=== PATIENT | male | born 1970 | race Caucasian/White ===

== ENCOUNTER 2018-01-06 16:28 | Emergency (ER) | payer OTHER ==
[~2018-01-06] VITALS: Ht 182.9 cm; Wt 94.5 kg
[2018-01-06 16:30] VITALS: BP 145/78
== END 2018-01-06 18:08 | disposition home or self-care (01) ==
LOC: ED 17:50
DX: R09.1 Pleurisy (principal); Z77.098 Contact with and (suspected) exposure to other hazardous, chiefly nonmedicinal, chemicals
CPT/HCPCS: 71046; 93005; 99284